=== PATIENT | female | born 1985 | race African-American/Black ===

== ENCOUNTER 2019-03-10 20:54 | Emergency (ER) | payer OTHER ==
[~2019-03-10] VITALS: Ht 160 cm; Wt 56.7 kg
--- NOTE | 2019-03-10 20:54 | NUR ---
C/O GENERALIZED BODY PAIN, HEADACHE SINCE THIS AFTERNOON. "I THINK I HAVE THE FLU". PT APPEARS VERY ANXIOUS, HYPERVENTILATING, CRYING. PT AWAKE, ALERT. -SOB, NAD NOTED, VSS, PENDING MD FERNANDEZ
[2019-03-10] MEDS ORDERED: ACETAMINOPHEN 325 MG TABLET ONE (21:29)
[2019-03-10] MEDS ORDERED: KETOROLAC TROMETHAMINE INJ 30 MG/ML VIAL ONE (21:29)
[2019-03-10] MEDS: IV NS 0.9% 1,000 ML BAG IV ONE (21:36)
[2019-03-10] MEDS: ACETAMINOPHEN 325 MG TABLET PO ONE (21:37)
[2019-03-10] MEDS: KETOROLAC TROMETHAMINE INJ 30 MG/ML VIAL IV ONE (21:38)
[2019-03-10 22:30] VITALS: BP 121/75
--- NOTE | 2019-03-10 23:02 | NUR ---
PER DR ESCALANTE CALL PATIENT ONCE RESULT IS BACK
--- NOTE | 2019-03-10 23:03 | NUR ---
Patient discharged to home in stable condition. Written and verbal after care instructions given. Patient verbalizes understanding of instruction. IV removed. Catheter intact and site benign. Pressure and 4x4 applied to site. No bleeding noted.
--- NOTE | 2019-03-10 23:32 | NUR ---
CALLED REGARDING +FLU A, VERBALIZED UNDERSTANDING
== END 2019-03-10 23:32 | disposition home or self-care (01) ==
LOC: ER 20:56
DX: J10.1 Influenza due to other identified influenza virus with other respiratory manifestations (principal); E86.0 Dehydration; Z98.890 Other specified postprocedural states
CPT/HCPCS: 87804 ×2; 96361; 96374; 99283; J1885; J7030